=== PATIENT | male | born 1940 | race Caucasian/White ===

== ENCOUNTER → 2020-05-02 | Outpatient (REF) | payer MEDICARE, BC ==
[2020-05-02 16:54] LABS: PROSTATIC SPECIFIC AG MONITOR 2.04 NG/ML (< 4.00)
== END ==
LOC: EDBD → M LABDRAWC 16:06
DX: C61 Malignant neoplasm of prostate (principal)

== ENCOUNTER → 2020-05-15 | Outpatient (CLI) | payer SELFPAY | LOC: EDBD 09:44 → M LABSMTC 09:44 | PROVIDERS: ATTEND Pediatrics | DX: Z20.828 Contact with and (suspected) exposure to other viral communicable diseases (principal) ==